=== PATIENT | female | born 1970 | race African-American/Black ===

== ENCOUNTER 2023-10-01 14:30 | Emergency (ER) | payer OTHER, SELFPAY ==
[2023-10-01 14:31] VITALS: BP 117/72; PULSE 68; RESP 16; TEMP 36.6; O2SAT 100
--- NOTE | 2023-10-01 18:22 | ED.URI ---
HPI - URI/Sore Throat General Chief Complaint: Upper Respiratory Infection <Mercy Franks PA-C - Last Filed: 10/02/23 17:26> Stated Complaint: SOB <Mercy Franks PA-C - Last Filed: 10/02/23 17:26> Time Seen by Provider: 10/01/23 18:22 <Mercy Franks PA-C - Last Filed: 10/02/23 17:26> Focused HPI: This is a 52 year old , that presents to the ER for shortness of breath. She is about 6 weeks by LMP. Reports shortness of breath started today. Reports nausea, vomiting, and lower abdominal pain. Does not currently have an OB. Denies fever, cough, chest pain, pelvic cramping or vaginal bleeding. GENERAL: Well-appearing, well-nourished, and in no acute distress. HEAD: Normocephalic, atraumatic. CHEST: Clear to auscultation. ?No respiratory distress. HEART: Regular rate and rhythm.? NEURO: ?Alert and oriented x3. Patient screened in triage and initial orders placed.? ?Additional care and disposition to be based upon?diagnostic testing and treatment. <Mercy Franks PA-C - Last Filed: 10/02/23 17:26> Focused HPI: This is a 52 year old , that presents to the ER for shortness of breath. She is about 6 weeks by LMP. Reports shortness of breath started today. Reports nausea, vomiting for last several days. Does not currently have an OB. Denies fever, cough, chest pain, pelvic cramping or vaginal bleeding. Daughter at beside notes patient was very anxious this morning and having a panic attack when the shortness of breath started. Patient has Hx of asthma. Denies wheezing. Used her inhaler today without much improvement. Denies any current shortness of breath. States she is more concerned about her nausea and vomiting, but does feel hungry currently. GENERAL: Well-appearing, well-nourished, and in no acute distress. HEAD: Normocephalic, atraumatic. CHEST: Clear to auscultation. ?No respiratory distress. HEART: Regular rate and rhythm.? NEURO: ?Alert and oriented x3. Patient screened in triage and initial orders placed.? ?Additional care and disposition to be based upon?diagnostic testing and treatment. <Angelia Chiu PA-C - Last Filed: 10/02/23 04:54> Source: patient and family <Angelia Chiu PA-C - Last Filed: 10/02/23 04:54> Mode of arrival: ambulatory <Angelia Chiu PA-C - Last Filed: 10/02/23 04:54> Limitations: no limitations <Angelia Chiu PA-C - Last Filed: 10/02/23 04:54> Related Data Allergies/Adverse Reactions: Allergies Allergy/AdvReac Type Severity Reaction Status Date / Time No Known Allergies Allergy Verified 10/01/23 18:52 <Mercy Franks PA-C - Last Filed: 10/02/23 17:26> Review of Systems Review of Systems: CONSTITUTIONAL: Denies fever, chills, or sweats. CARDIOVASCULAR: Denies chest pain. RESPIRATORY: See HPI. GASTROINTESTINAL: Denies abdominal pain, nausea, vomiting, or diarrhea. GENITOURINARY: Denies vaginal bleeding, dysuria or hematuria. <Angelia Chiu PA-C - Last Filed: 10/02/23 04:54> All systems reviewed & are unremarkable except as noted in HPI and below <Angelia Chiu PA-C - Last Filed: 10/02/23 04:54> PMFSH Past Medical History Medical History: Medical History (Updated 10/02/23 @ 17:25 by Mercy Franks PA-C) History of asthma <Mercy Franks PA-C - Last Filed: 10/02/23 17:26> Social History Social History: Social History (Updated 10/02/23 @ 17:25 by Mercy Franks PA-C) Substance use: never <Mercy Franks PA-C - Last Filed: 10/02/23 17:26> Exam Narrative: GENERAL: Well appearing, well-nourished, non-toxic, in no acute distress. HEAD: Normocephalic, atraumatic. RESPIRATORY: Airway patent, respirations nonlabored. Clear to auscultation bilaterally, no rales, rhonchi, wheezing. No focal lung sounds. CARDIOVASCULAR: Regular rate and rhythm ABDOMINAL: Soft, no tenderness throughout abdomen, nondistended. Normoactive BS. MUSCULOSKELETAL: Moves
--- NOTE | 2023-10-01 18:24 | ECG_ITS ---
Measurements Intervals [place] Rate: 57 P: 43 WA: 184 QRS: 25 QRSD: 97 T: 37 QT: 395 QTc: 385 Interpretive Statements SINUS BRADYCARDIA NORMAL ECG NO PREVIOUS ECG AVAILABLE FOR COMPARISON Electronically Signed On 10-02-2023 16:17:25 [employer] by Tristen Mo M.D.
[2023-10-01] MEDS: ONDANSETRON INJ 4 MG/2 ML VIAL IV PUSH (18:52)
[2023-10-01 18:53] VITALS: BP 118/77; PULSE 60; RESP 16; O2SAT 100
[2023-10-01 19:02] LABS: Basophils Percent Auto 0.4 % (0.2-1.2); Eosinophils Absolute Auto 0.6 K/mm3 (0-0.3); Eosinophils Percent Auto 8.1 % (0-4.4); Hematocrit 40.2 % (37.0-47.0); Immature Granulocyte Absolute 0.02 K/mm3 (0.00-0.031); Immature Granulocyte Percent A 0.3 % (0-0.5); Lymphocytes Absolute Auto 2.62 K/mm3 (0.9-3.2); Lymphocytes Percent Auto 38.6 % (18.3-44.2); Mean Corpuscular HGB Conc 32.3 g/dl (32-36); Mean Corpuscular Hemoglobin 28.8 pg (26-34); Mean Corpuscular Volume 89.1 fl (80-100); Mean Platelet Volume 10.5 fl (7.4-10.4); Monocytes Absolute Auto 0.6 K/mm3 (0.1-0.6); Monocytes Percent Auto 8.7 % (2.6-8.5); Neutrophils Percent Auto 43.9 % (45.5-73.1); Platelet Count Result 178 k/mm3 (150-375); Red Blood Count 4.51 M/mm3 (4.2-5.4); Red Cell Distribution Width 13.7 % (11.5-14.5); White Blood Count 6.8 K/mm3 (4.5-10.0)
[2023-10-01 19:14] LABS: Lipase 87 U/L (23-300)
[2023-10-01 19:15] LABS: INR 0.9; Prothrombin Time 12.6 Seconds (11.1-14.7)
[2023-10-01 19:16] LABS: Alanine Aminotransferase 22 U/L (6-35); Albumin Level 4.4 g/dL (3.5-5.1); Alkaline Phosphatase 34 U/L (38-126); Anion Gap 8 mmol/L (8-16); Aspartate Amino Transferase 38 U/L (14-36); Bilirubin,Total 0.6 mg/dL (0.2-1.3); Blood Urea Nitrogen 11 mg/dL (7-17); Calcium 9.3 mg/dL (8.4-10.2); Carbon Dioxide 23 mmol/L (22-30); Chloride 102 mmol/L (98-107); Estimated Glomerular Filt Rate > 60; Glucose 90 mg/dL (65-110); Partial Thromboplastin Time 29.7 SECONDS (22.3-36.8); Potassium 4.3 mmol/L (3.4-5.0); Sodium 133 mmol/L (137-145)
[2023-10-01 19:35] LABS: Beta HCG Quantitative > 15000.00 mIU/ML
[2023-10-01 19:41] LABS: Influenza A QL RT-PCR Negative (Negative); Influenza B QL RT-PCR Negative (Negative); RSV RNA, RT-PCR Negative (Negative); SARS-CoV-2 RNA PCR Negative (Negative)
[2023-10-01] MEDS: SODIUM CHLORIDE 0.9% IV 500 ML 999 ML IV CONT (19:45)
[2023-10-01 19:50] VITALS: BP 132/82; PULSE 70; RESP 15; TEMP 36.7; O2SAT 99
[2023-10-01 19:51] VITALS: O2SAT 99
[2023-10-01 19:57] LABS: Appearance Urine Clear (Clear); Bacteria Urine None Seen /hpf; Bilirubin Urine Negative (Negative); Blood Urine Trace (Negative); Color Urine Yellow (Yellow); Glucose Urine UA Negative (Negative); Ketones Urine Negative (Negative); Leukocyte Esterase Ur Negative LEU/UL (Negative); Nitrate Urine Negative (Negative); Non Pathogenic Casts 0-2; Protein Urine Negative (Negative); RBC Urine 0-2 /hpf (0-2); Squamous Epithelial Cell Urine Occasional /hpf (Few); Urobilinogen Urine 0.2 mg/dL (<2.0); WBC Urine 0-5 /hpf; pH Urine 5.5 (5.0-9.0)
[2023-10-01 20:00] LABS: Add Urine Microscopic? YES
[2023-10-01 22:17] VITALS: BP 120/76; PULSE 68; RESP 14; TEMP 36.7; O2SAT 99
== END 2023-10-01 22:18 | disposition home or self-care (01) ==
PROVIDERS: Physician Assistant; Emergency Provider Physician Assistant
DX: O26.891 Other specified pregnancy related conditions, first trimester (principal); R11.2 Nausea with vomiting, unspecified; R06.02 Shortness of breath; Z3A.09 9 weeks gestation of pregnancy; Z20.822 Contact with and (suspected) exposure to COVID-19
CPT/HCPCS: 36415; 80053; 81001; 81025; 83690; 84702; 85025; 85610; 85730; 87637; 93005; 96374; 99284; J2405; J7040

== ENCOUNTER 2023-10-23 15:36 | Outpatient (CLI) | payer OTHER, SELFPAY ==
--- NOTE | ~2023-10-23 | US_ITS ---
EXAMINATION: US OB <=14 wk fetus w TV DATE: 10/23/2023 16:44 INDICATION: Inconclusive viability during first trimester of TECHNIQUE: Real-time pelvic ultrasound utilizing both a transvaginal and transabdominal probe was pe rformed. The interpreting radiologist was not present for the study. COMPARISON: None. FINDINGS: The uterus measures 14.8 x 9.2 x 9.2 cm. There is an intrauterine gestational sac. A yolk sac and fe nayana pole are identified. The crown rump length measures 1.6 cm, which correlates with an estimated ge stational age of 8 weeks and 0 days. There is no evident heart motion by color or M-mode Dopple r which at this stage of would be consistent with demise. The right ovary is not visualized The left ovary measures 3.6 x 3.0 x 2.2 cm. There is no free fluid in the pelvis. IMPRESSION: 1. Intrauterine gestational sac with 1.6 cm pole without evident heart motion consistent with demise. Reviewed, dictated and finalized at location B. IMPRESSION: 1. Intrauterine gestational sac with 1.6 cm pole without evident he art motion consistent with demise.
== END 2023-10-23 15:37 | disposition home or self-care (01) ==
PROVIDERS: Visit Provider Advanced Practice Midwife
DX: O36.80X0 Pregnancy with inconclusive fetal viability, not applicable or unspecified (principal); Z3A.00 Weeks of gestation of pregnancy not specified
CPT/HCPCS: 36415; 76801; 76817; 84702; 86850; 86900; 86901